=== PATIENT | female | born 1985 | race Caucasian/White ===

== ENCOUNTER → 2016-06-08 | Day surgery (SDC) | payer OTHER ==
[~2016-06-08] VITALS: Ht 160 cm; Wt 68.0 kg
[~2016-06-08] MED LIST: /ONDA4TA OR; /PANT40TA OR; /SUCR1TA OR; ACET50TA PO; ACET65TA OR; BUDE150T PO; BUSP10TA PO; CIPR500T4 OR; COLA100C2 OR; IBUP100SUS PO; IRON325T3 PO; KLON0.5T PO; LIDOCAINE 2% INJ 100 MG/5 ML SDV (FOR ANES.) As Ordered ONE; LR 1,000 ML IV SCH; METO10TA2 OR; MIDAZOLAM INJ 2 MG/2 ML VIAL (J2250) As Ordered ONE; MILKSUS OR; MIRALEX OR; OMEP40CA2 PO; ONDANSETRON 4MG/2ML VIAL (J2405) As Ordered ONE; ONDANSETRON 4MG/2ML VIAL (J2405) IV PRN; PERC5TAB8 OR; PERC7.5T8 OR; PRENTAB74 PO; PROPOFOL 200 MG/20 ML VIAL As Ordered ONE; SUCCINYLCHOLINE 100 MG/5 ML SYRINGE (J0330) As Ordered ONE; ZOLO100T PO; dexameTHASONE 4 MG/ML 1ML VIAL (J1100) As Ordered ONE; fentaNYL 100 MCG/2 ML INJECTION (J3010) As Ordered ONE
--- NOTE | 2016-06-08 07:33 | EDDOCDS ---
Nurse's Notes [facility] Name: Kathryn Reis Age: 30 yrs Sex: Female : 1985 Arrival Date: 06/08/2016 Time: 03:42 Bed 1 Private MD: Diagnosis: Esophageal obstruction Presentation: 06/08 03:48 Presenting complaint: EMS states: Patient has had long standing issues with swallowing, mgs was usually able to force food down. Tonight patient had piece of cube steak get stuck, pain 4/10. CAH tried using nitro and carbonated beverage to force food down. VS WNL. NKDA. History anxiety and depression. Patient given dose of Ativan at [facility]. Risk factors: Stridor is not present. Drooling is not present. Shortness of breath is not present. Cellulitis is not present. Adult Sepsis Screening: The patient does not have new or worsening altered mentation. Patient's respiratory rate is less than 22. Systolic blood pressure is greater than 100. Patient has a qSOFA score of 0- Negative Sepsis Screen. Suicide/Homicide risk assessment- the patient denies having any suicidal and/or homicidal ideations and does not present with any other emotional, behavioral or mental health complaints. Status: Patient is not a public address servicer or dependent. Transition of care: patient was received from [facility]. 03:48 Acuity: ALEAH Level 3 mgs 03:48 Method Of Arrival: Ambulance mgs Triage Assessment: 03:56 General: Appears in no apparent distress, Behavior is appropriate for age, cooperative. mgs Pain: Denies pain. Pt Declines HIV testing. The patient is triaged at the bedside. See Assessment in Nurses Notes section of ED record. Neurological: Level of Consciousness is awake, alert, Oriented to person, place, time. EENT: Throat is pink. Cardiovascular: Capillary refill < 3 seconds Heart tones S1 S2 present. Respiratory: Airway is patent Respiratory effort is even, unlabored, Respiratory pattern is regular, symmetrical. Derm: Skin is pink, warm & dry. 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 Zoloft 100 mg Oral tab 1 tab once daily (Last dose: 06/07/2016 21:00) 2. BuSpar 10 mg Oral tab 1 tab 2 times per day (Last dose: 06/06/2016 21:00) - PMHx: Anxiety; Depression; Pancreatitis; - PSHx: Cholecystectomy; left knee ortho; right knee ortho; Tonsillectomy; Adenoidectomy; Tubal ligation; - Social history: Smoking status: Patient states was never smoker of tobacco. No barriers to communication noted, The patient speaks fluent Bangladeshi. - Family history: Not pertinent. - : The pt / caregiver states he / she is not on anticoagulants. Home medication list is obtained from the patient. - Exposure Risk Screening:: None identified. Screenin:58 Screening information is obtained from the patient. Fall risk: No risks identified. mgs Assistance ADL's: requires no assistance with activities of daily living. Abuse/DV Screen: The patient / caregiver reports he/she is: not in a situation that causes fear, pain or injury. Nutritional screening: No deficits noted. Advance Directives: Currently, there is a health care proxy, Laz Hernandez, father. There is no active DNR order. home support is adequate. Assessment: 03:59 General: Please see triage assessment. mgs 04:59 General: Appears in no apparent distress, Behavior is cooperative. Neurological: Level mgs of Consciousness is awake, alert, Oriented to person, place, time. Cardiovascular: Capillary refill < 3 seconds. Respiratory: Airway is patent Respiratory effort is even, unlabored, Respiratory pattern is regular, symmetrical. Derm: Skin is pink, warm & dry. 05:55 General: Appears in no apparent distress, Behavior is cooperative. Neurological: Level mgs of Consciousness is awake, alert. Cardiovascular: Capillary refill < 3 seconds. Respiratory: Airway is patent Respiratory effort is even, unlabored, Respiratory pattern is regular, symmetrical. Derm: Skin is pink, warm & dry. 06:30 General: Appears in no apparent distress, Behavior is cooperative. Neurological: Level mgs of Consciousness is awake, alert, Oriented to person, place, time. Cardiovascular: Capillary refill < 3 seconds. Respiratory: Airway is patent Respiratory effort is even, unlabored, Respiratory pattern is regular, symmetrical. Derm: Skin is pink, warm & dry. 07:27 General: Pt able to accommodate her own secretions OR check list completed vital signs dls remain stable.. Vital Signs: 03:47 BP 122 / 80 RA Sitting (auto/reg); Pulse 95 MON; Resp 18 S; Temp 98.0(O); Pulse Ox 99% cln on R/A; Weight 68.04 kg (R); Height 5 ft. 3 in. (160.02 cm) (R); Pain 4/10; 04:58 BP 102 / 68 (auto/); mgs 04:58 Pulse Ox 96% ; mgs 07:28 BP 95 / 52; Pulse 67; Resp 18; Temp 98.0(TE); Pulse Ox 97% on R/A; dls 03:47 Body Mass Index 26.57 (68.04 kg, 160.02 cm) cln Vitals: 03:56 Log In Time N/A - ambulance arrival. s ED Course: 03:43 Patient visited by Kelly Parsons PCA. giovani 03:43 Patient moved to Waiting giovani 03:44 Patient moved to 1 giovani 03:48 Curtis Rivera RN is Primary Nurse. mgs 03:48 Pt greeted and oriented to ED. Patient advised of names of staff involved in care, cln location of call lucas, wait times and NPO status. Patient has correct armband on for positive identification. Placed in gown. Bed in low position. Call light in reach. Side rails up X 1. 03:49 Patient visited by Sanjuana Martin PCA. cln 03:49 Patient visited by Kelly Parsons PCA. giovani 03:52 Curtis Emerson DO is Attending Physician. mm11 03:52 Triage Initiated mgs 03:53 Patient visited by Curtis Emerson DO. mm11 03:56 Patient visited by Curtis Emerson DO. mm11 03:59 Patient visited by Curtis Rivera RN. mgs 03:59 Maintain field IV. Dressing intact. Good blood return noted. Site clean & dry. Gauge & mgs site: 20 in left AC. 04:12 Max Alanis MD is Hospitalizing Provider. mm11 04:25 Patient name changed from Kathryn\S\Kaylah\S\Tyre\S\ to Kathryn\S\Kaylah\S\Reis. EDMS 04:56 [facility] Payment Agreement was scanned into PhysicianPortal and attached [facility] record[facility] 04[facility] Patient visited by Curtis Rivera RN. mgs 05:55 Patient visited by Curtis Rivera RN. mgs 06:31 Patient visited by Curtis Rivera RN. mgs 07:01 Report received from Marbin BUSH. dls 07:30 The patient / caregiver is instructed regarding the plan of care and ED course. dls 07:30 No procedures done that require assistance. dls Order Results: There are currently no results for this order. Outcome: 04:13 Decision to Hospitalize by Provider. mm11 07:29 Discharge Assessment: Patient awake, alert and oriented x 3. No cognitive and/or dls functional deficits noted. Patient verbalized understanding of disposition instructions. patient administered narcotics - no. The following High Risk Discharge criteria are identified: None. Admitted to OR accompanied by nurse, via stretcher, with chart. Condition: stable. No special radiology studies were completed. Property :Personal belongings accompany Pt. 07:32 Patient left the ED. dls Signatures: Dispatcher [facility] Joann Love RN RN Curtis Souza, DO mm11 Kelly Parsons, MANAGER CONTRACT MANAGER CONTRACT Val[facility] Curtis Rivera,RN RN mgs Sanjuana Martin, MANAGER CONTRACT MANAGER CONTRACT cln [facility]
--- NOTE | 2016-06-08 07:33 | EDDOCDS ---
Physician Documentation [facility] Name: Kathryn Reis Age: 30 yrs Sex: Female : 1985 Arrival Date: 06/08/2016 Time: 03:42 Bed 1 Private MD: Disposition: 06/08/16 04:13 Hospitalization ordered by Max Alanis for Inpatient Admission. Preliminary diagnosis is Esophageal obstruction. - Bed requested for Admit. - Status is Inpatient Admission. dls - Condition is Stable. - Problem is an acute exacerbation. - Symptoms have improved. Historical: - Allergies: animal hair; feathers; - Home Meds: 1. Zoloft 100 mg Oral tab 1 tab once daily (Last dose: 06/07/2016 21:00) 2. BuSpar 10 mg Oral tab 1 tab 2 times per day (Last dose: 06/06/2016 21:00) - PMHx: Anxiety; Depression; Pancreatitis; - PSHx: Cholecystectomy; left knee ortho; right knee ortho; Tonsillectomy; Adenoidectomy; Tubal ligation; - Social history: Smoking status: Patient states was never smoker of tobacco. No barriers to communication noted, The patient speaks fluent Welsh. - Family history: Not pertinent. - : The pt / caregiver states he / she is not on anticoagulants. Home medication list is obtained from the patient. - Exposure Risk Screening:: None identified. 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 3 in. (160.02 cm) (R); Pain 4/10; 04:58 BP 102 / 68 (auto/); mgs 04:58 Pulse Ox 96% ; mgs 07:28 BP 95 / 52; Pulse 67; Resp 18; Temp 98.0(TE); Pulse Ox 97% on R/A; dls 03:47 Body Mass Index 26.57 (68.04 kg, 160.02 cm) cln MDM: 04:01 BED REQUEST+ADM ordered. EDNM 04:27 Financial registration complete. [facility] 04:56 [facility] Payment Agreement was scanned into [employer] and attached to record. [facility] Signatures: Dispatcher [employer] EDMS Joann Love RN RN dls Maynard, Matthew, DO mm11 Valerie Donovan [facility] Curtis Rivera,RACHELLE RN mgs The chart was reviewed and I authenticate all verbal orders and agree with the evaluation and treatment provided.Corrections: (The following items were deleted from the chart) 04:26 04:01 Chest, 2 view (PA\E\Lat)+XR ordered. EDMS EDMS Attachments: 04:56 [facility] Payment Agreement [facility] MTDD
--- NOTE | 2016-06-08 08:37 | ROOR ---
Patient Name: Kathryn Reis Procedure Date: 06/08/2016 7:46 AM Date of : 1985 Age: 30 Room: Main OR Gender: Female Note Status: Finalized Procedure: Upper GI endoscopy Indications: Foreign body in the esophagus Providers: Max Alanis MD Referring MD: WILMAN Gann Requesting Provider: Medicines: General Anesthesia Complications: No immediate complications. Procedure: Pre-Anesthesia Assessment: - Prior to the procedure, a History and Physical was performed, and patient medications and allergies were reviewed. The patient is competent. The risks and benefits of the procedure and the sedation options and risks were discussed with the patient. All questions were answered and informed consent was obtained. Patient identification and proposed procedure were verified by the physician, the nurse and the mechanical systems control engineer in the procedure room. Mental Status Examination: alert and oriented. Airway Examination: normal oropharyngeal airway and neck mobility. Respiratory Examination: clear to auscultation. CV Examination: normal. Prophylactic Antibiotics: The patient does not require prophylactic antibiotics. Prior Anticoagulants: The patient has taken no previous anticoagulant or antiplatelet agents. ASA Grade Assessment: I - A normal, healthy patient. After reviewing the risks and benefits, the patient was deemed in satisfactory condition to undergo the procedure. The anesthesia plan was to use general anesthesia. Immediately prior to administration of medications, the patient was re-assessed for adequacy to receive sedatives. The heart rate, respiratory rate, oxygen saturations, blood pressure, adequacy of pulmonary ventilation, and response to care were monitored throughout the procedure. The physical status of the patient was re-assessed after the procedure. The Endoscope was introduced through the mouth, and advanced to the second part of duodenum. The upper GI endoscopy was accomplished without difficulty. The patient tolerated the procedure well. Findings: Mildly severe esophagitis with no bleeding was found 42 cm from the incisors. Biopsies were taken with a cold forceps for histology. Estimated blood loss was minimal. The entire examined stomach was normal. The second portion of the duodenum was normal. A piece of meat was found over lower third of esophagus, partially obstructing esophagus with saliva and clear fluid backing up from it. This was pushed down to the stomach without difficulty. An inflamed area of the distal esophagus/gastroesophageal junction was found Impression: - Mildly severe reflux esophagitis. Biopsied. - Normal stomach. - Normal second portion of the duodenum. Recommendation: - Discharge patient to home (ambulatory). - Soft diet for 2 weeks. - Use Prilosec (omeprazole) 40 mg PO daily for 6 weeks. Attending Participation: I personally performed the entire procedure. Max Alanis MD Max Alanis MD 06/08/2016 8:36:50 AM This report has been signed electronically. Number of Addenda: 0 Note Initiated On: 06/08/2016 7:46 AM Estimated Blood Loss: Estimated blood loss was minimal.
[2016-06-08] MEDS: fentaNYL 100 MCG/2 ML INJECTION (J3010) IV PRN ×2 (08:55→09:00)
[2016-06-08 09:55] VITALS: BP 107/61
--- NOTE | 2016-06-10 08:33 | EDDOCDS ---
Physician Documentation [facility] Name: Kathryn Reis Age: 30 yrs Sex: Female : 1985 Arrival Date: 06/08/2016 Time: 03:42 Bed 1 Private MD: Disposition: 06/08/16 04:13 Hospitalization ordered by Max Alanis for Inpatient Admission. Preliminary diagnosis is Esophageal obstruction. - Bed requested for Admit. - Status is Inpatient Admission. dls - Condition is Stable. - Problem is an acute exacerbation. - Symptoms have improved. Historical: - Allergies: animal hair; feathers; - Home Meds: 1. Zoloft 100 mg Oral tab 1 tab once daily (Last dose: 06/07/2016 21:00) 2. BuSpar 10 mg Oral tab 1 tab 2 times per day (Last dose: 06/06/2016 21:00) - PMHx: Anxiety; Depression; Pancreatitis; - PSHx: Cholecystectomy; left knee ortho; right knee ortho; Tonsillectomy; Adenoidectomy; Tubal ligation; - Social history: Smoking status: Patient states was never smoker of tobacco. No barriers to communication noted, The patient speaks fluent Occitan. - Family history: Not pertinent. - : The pt / caregiver states he / she is not on anticoagulants. Home medication list is obtained from the patient. - Exposure Risk Screening:: None identified. 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 3 in. (160.02 cm) (R); Pain 4/10; 04:58 BP 102 / 68 (auto/); mgs 04:58 Pulse Ox 96% ; mgs 07:28 BP 95 / 52; Pulse 67; Resp 18; Temp 98.0(TE); Pulse Ox 97% on R/A; dls 03:47 Body Mass Index 26.57 (68.04 kg, 160.02 cm) cln MDM: 04:01 BED REQUEST+ADM ordered. EDDC 04:27 Financial registration complete. [facility] 04:56 [facility] Payment Agreement was scanned into MEDHOST and attached to record. [facility] 06/09 13:44 T-Sheet-- Draft Copy was scanned into MEDHOST and attached to record. 13:44 PCR was scanned into MEDHOST and attached to record. Signatures: Dispatcher [employer] EDMS Joann Love RN RN dls Elsi Hauser, Reg Reg Curtis Emerson, DO DO mm11 Valerie Donovan [facility] Curtis Rivera,RACHELLE RN mgs The chart was reviewed and I authenticate all verbal orders and agree with the evaluation and treatment provided.Corrections: (The following items were deleted from the chart) 06/08 04:26 04:01 Chest, 2 view (PA\E\Lat)+XR ordered. EDMS EDMS Attachments: 04:56 [facility] Payment Agreement [facility] 06/09 13:44 T-Sheet-- Draft Copy gb Chart Complete MTDD
--- NOTE | 2016-06-10 08:33 | EDDOCDS ---
Physician Documentation [facility] Name: Kathryn Reis Age: 30 yrs Sex: Female : 1985 Arrival Date: 06/08/2016 Time: 03:42 Bed 1 Private MD: Disposition: 06/08/16 04:13 Hospitalization ordered by Max Alanis for Inpatient Admission. Preliminary diagnosis is Esophageal obstruction. - Bed requested for Admit. - Status is Inpatient Admission. dls - Condition is Stable. - Problem is an acute exacerbation. - Symptoms have improved. Historical: - Allergies: animal hair; feathers; - Home Meds: 1. Zoloft 100 mg Oral tab 1 tab once daily (Last dose: 06/07/2016 21:00) 2. BuSpar 10 mg Oral tab 1 tab 2 times per day (Last dose: 06/06/2016 21:00) - PMHx: Anxiety; Depression; Pancreatitis; - PSHx: Cholecystectomy; left knee ortho; right knee ortho; Tonsillectomy; Adenoidectomy; Tubal ligation; - Social history: Smoking status: Patient states was never smoker of tobacco. No barriers to communication noted, The patient speaks fluent Armenian. - Family history: Not pertinent. - : The pt / caregiver states he / she is not on anticoagulants. Home medication list is obtained from the patient. - Exposure Risk Screening:: None identified. 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 3 in. (160.02 cm) (R); Pain 4/10; 04:58 BP 102 / 68 (auto/); mgs 04:58 Pulse Ox 96% ; mgs 07:28 BP 95 / 52; Pulse 67; Resp 18; Temp 98.0(TE); Pulse Ox 97% on R/A; dls 03:47 Body Mass Index 26.57 (68.04 kg, 160.02 cm) cln MDM: 04:01 BED REQUEST+ADM ordered. EDOK 04:27 Financial registration complete. [facility] 04:56 [facility] Payment Agreement was scanned into MEDHOST and attached to record. [facility] 06/09 13:44 T-Sheet-- Draft Copy was scanned into MEDHOST and attached to record. 13:44 PCR was scanned into MEDHOST and attached to record. Signatures: Dispatcher [employer] EDMS Joann Love RN RN dls Elsi Hauser, Reg Reg Curtis Emerson, DO DO mm11 Valerie Donovan [facility] Curtis Rivera,RACHELLE RN mgs The chart was reviewed and I authenticate all verbal orders and agree with the evaluation and treatment provided.Corrections: (The following items were deleted from the chart) 06/08 04:26 04:01 Chest, 2 view (PA\E\Lat)+XR ordered. EDMS EDMS Attachments: 04:56 [facility] Payment Agreement [facility] 06/09 13:44 T-Sheet-- Draft Copy gb Chart Complete MTDD
--- NOTE | 2016-06-10 08:33 | EDDOCDS ---
Nurse's Notes [facility] Name: Kathryn Reis Age: 30 yrs Sex: Female : 1985 Arrival Date: 06/08/2016 Time: 03:42 Bed 1 Private MD: Diagnosis: Esophageal obstruction Presentation: 06/08 03:48 Presenting complaint: EMS states: Patient has had long standing issues with swallowing, mgs was usually able to force food down. Tonight patient had piece of cube steak get stuck, pain 4/10. CAH tried using nitro and carbonated beverage to force food down. VS WNL. NKDA. History anxiety and depression. Patient given dose of Ativan at [facility]. Risk factors: Stridor is not present. Drooling is not present. Shortness of breath is not present. Cellulitis is not present. Adult Sepsis Screening: The patient does not have new or worsening altered mentation. Patient's respiratory rate is less than 22. Systolic blood pressure is greater than 100. Patient has a qSOFA score of 0- Negative Sepsis Screen. Suicide/Homicide risk assessment- the patient denies having any suicidal and/or homicidal ideations and does not present with any other emotional, behavioral or mental health complaints. Status: Patient is not a director of neighborhood service center or dependent. Transition of care: patient was received from [facility]. 03:48 Acuity: ALEAH Level 3 mgs 03:48 Method Of Arrival: Ambulance mgs Triage Assessment: 03:56 General: Appears in no apparent distress, Behavior is appropriate for age, cooperative. mgs Pain: Denies pain. Pt Declines HIV testing. The patient is triaged at the bedside. See Assessment in Nurses Notes section of ED record. Neurological: Level of Consciousness is awake, alert, Oriented to person, place, time. EENT: Throat is pink. Cardiovascular: Capillary refill < 3 seconds Heart tones S1 S2 present. Respiratory: Airway is patent Respiratory effort is even, unlabored, Respiratory pattern is regular, symmetrical. Derm: Skin is pink, warm & dry. BOND ANALYST: 03:56 4, Full Term 4, Living 4 mgs Historical: - Allergies: animal hair; feathers; - Home Meds: 1. Zoloft 100 mg Oral tab 1 tab once daily (Last dose: 06/07/2016 21:00) 2. BuSpar 10 mg Oral tab 1 tab 2 times per day (Last dose: 06/06/2016 21:00) - PMHx: Anxiety; Depression; Pancreatitis; - PSHx: Cholecystectomy; left knee ortho; right knee ortho; Tonsillectomy; Adenoidectomy; Tubal ligation; - Social history: Smoking status: Patient states was never smoker of tobacco. No barriers to communication noted, The patient speaks fluent Dutch. - Family history: Not pertinent. - : The pt / caregiver states he / she is not on anticoagulants. Home medication list is obtained from the patient. - Exposure Risk Screening:: None identified. Screenin:58 Screening information is obtained from the patient. Fall risk: No risks identified. mgs Assistance ADL's: requires no assistance with activities of daily living. Abuse/DV Screen: The patient / caregiver reports he/she is: not in a situation that causes fear, pain or injury. Nutritional screening: No deficits noted. Advance Directives: Currently, there is a health care proxy, Laz Hernandez, father. There is no active DNR order. home support is adequate. Assessment: 03:59 General: Please see triage assessment. mgs 04:59 General: Appears in no apparent distress, Behavior is cooperative. Neurological: Level mgs of Consciousness is awake, alert, Oriented to person, place, time. Cardiovascular: Capillary refill < 3 seconds. Respiratory: Airway is patent Respiratory effort is even, unlabored, Respiratory pattern is regular, symmetrical. Derm: Skin is pink, warm & dry. 05:55 General: Appears in no apparent distress, Behavior is cooperative. Neurological: Level mgs of Consciousness is awake, alert. Cardiovascular: Capillary refill < 3 seconds. Respiratory: Airway is patent Respiratory effort is even, unlabored, Respiratory pattern is regular, symmetrical. Derm: Skin is pink, warm & dry. 06:30 General: Appears in no apparent distress, Behavior is cooperative. Neurological: Level mgs of Consciousness is awake, alert, Oriented to person, place, time. Cardiovascular: Capillary refill < 3 seconds. Respiratory: Airway is patent Respiratory effort is even, unlabored, Respiratory pattern is regular, symmetrical. Derm: Skin is pink, warm & dry. 07:27 General: Pt able to accommodate her own secretions OR check list completed vital signs dls remain stable.. Vital Signs: 03:47 BP 122 / 80 RA Sitting (auto/reg); Pulse 95 MON; Resp 18 S; Temp 98.0(O); Pulse Ox 99% cln on R/A; Weight 68.04 kg (R); Height 5 ft. 3 in. (160.02 cm) (R); Pain 4/10; 04:58 BP 102 / 68 (auto/); mgs 04:58 Pulse Ox 96% ; mgs 07:28 BP 95 / 52; Pulse 67; Resp 18; Temp 98.0(TE); Pulse Ox 97% on R/A; dls 03:47 Body Mass Index 26.57 (68.04 kg, 160.02 cm) cln Vitals: 03:56 Log In Time N/A - ambulance arrival. s ED Course: 03:43 Patient visited by Kelly Parsons PCA. giovani 03:43 Patient moved to Waiting giovani 03:44 Patient moved to 1 giovani 03:48 Curtis Rivera RN is Primary Nurse. mgs 03:48 Pt greeted and oriented to ED. Patient advised of names of staff involved in care, cln location of call lucas, wait times and NPO status. Patient has correct armband on for positive identification. Placed in gown. Bed in low position. Call light in reach. Side rails up X 1. 03:49 Patient visited by Sanjuana Martin PCA. cln 03:49 Patient visited by Kelly Parsons PCA. giovani 03:52 Curtis Emerson DO is Attending Physician. mm11 03:52 Triage Initiated mgs 03:53 Patient visited by Curtis Emerson DO. mm11 03:56 Patient visited by Curtis Emerson DO. mm11 03:59 Patient visited by Curtis Rivera RN. mgs 03:59 Maintain field IV. Dressing intact. Good blood return noted. Site clean & dry. Gauge & mgs site: 20 in left AC. 04:12 Max Alanis MD is Hospitalizing Provider. mm11 04:25 Patient name changed from Kathryn\S\Kaylah\S\Tyre\S\ to Kathryn\S\Kaylah\S\Reis. EDMS 04:56 [facility] Payment Agreement was scanned into [employer] and attached to record. [facility] 04:59 Patient visited by Curtis Rivera RN. mgs 05:55 Patient visited by Curtis Rivera,RACHELLE. mgs 06:31 Patient visited by Curtis Rivera RN. mgs 07:01 Report received from Marbin BUSH. dls 07:30 The patient / caregiver is instructed regarding the plan of care and ED course. dls 07:30 No procedures done that require assistance. dls 06/09 13:44 T-Sheet-- Draft Copy was scanned into [employer] and attached to record. gb 13:44 PCR was scanned into [employer] and attached to record. gb Order Results: There are currently no results for this order. Outcome: 06/08 04:13 Decision to Hospitalize by Provider. mm11 07:29 Discharge Assessment: Patient awake, alert and oriented x 3. No cognitive and/or dls functional deficits noted. Patient verbalized understanding of disposition instructions. patient administered narcotics - no. The following High Risk Discharge criteria are identified: None. Admitted to OR accompanied by nurse, via stretcher, with chart. Condition: stable. No special radiology studies were completed. Property :Personal belongings accompany Pt. 07:32 Patient left the ED. dls Signatures: Dispatcher [facility] EDMS Joann Love, RN RN dls Elsi Hauser, Reg Reg Curtis Malcolm, DO mm11 Kelly Parsons, WELDING EQUIPMENT SALES REPRESENTATIVE WELDING EQUIPMENT SALES REPRESENTATIVE Valerie Arevalo Curtis Borges,RN RN mgs Sanjuana Martin, WELDING EQUIPMENT SALES REPRESENTATIVE WELDING EQUIPMENT SALES REPRESENTATIVE cln Chart Complete MTDD
== END ==
LOC: M ED 03:42 → M SDC 07:31
PROVIDERS: ATTEND Surgery
DX: T18.108A Unspecified foreign body in esophagus causing other injury, initial encounter (principal); Y92.099 Unspecified place in other non-institutional residence as the place of occurrence of the external cause; K21.0 Gastro-esophageal reflux disease with esophagitis; F32.9 Major depressive disorder, single episode, unspecified; F41.9 Anxiety disorder, unspecified; Z79.899 Other long term (current) drug therapy
CPT/HCPCS: 43239; 43247; 88305; 99285; J0330; J1100; J2250; J2405; J3010

== ENCOUNTER → 2016-07-14 | Outpatient (REF) | payer OTHER ==
[~2016-07-14] MED LIST changes: -LIDOCAINE 2% INJ 100 MG/5 ML SDV (FOR ANES.) As Ordered ONE; -LR 1,000 ML IV SCH; -MIDAZOLAM INJ 2 MG/2 ML VIAL (J2250) As Ordered ONE; -ONDANSETRON 4MG/2ML VIAL (J2405) As Ordered ONE; -ONDANSETRON 4MG/2ML VIAL (J2405) IV PRN; -PROPOFOL 200 MG/20 ML VIAL As Ordered ONE; -SUCCINYLCHOLINE 100 MG/5 ML SYRINGE (J0330) As Ordered ONE; -dexameTHASONE 4 MG/ML 1ML VIAL (J1100) As Ordered ONE; -fentaNYL 100 MCG/2 ML INJECTION (J3010) As Ordered ONE
== END ==
LOC: M LAB REF 11:32
PROVIDERS: ATTEND Physician Assistant
DX: B34.9 Viral infection, unspecified (principal)

== ENCOUNTER → 2016-10-28 | Outpatient (CLI) | payer OTHER ==
[~2016-10-28] VITALS: Ht 167.6 cm; Wt 68.0 kg
[~2016-10-28] MED LIST changes: +IRON65TA PO; +LIDOCAINE 2% INJ 100 MG/5 ML SDV (FOR ANES.) As Ordered ONE; +NS 1,000 ML IV ONE; +PROPOFOL 200 MG/20 ML VIAL As Ordered ONE
--- NOTE | 2016-10-28 14:00 | ROOR ---
Patient Name: Kathryn Reis Procedure Date: 10/28/2016 1:41 PM Date of : 1985 Age: 30 Room: [facility] Gender: Female Note Status: Finalized Procedure: Upper GI endoscopy + Balloon Dilatation Indications: Dysphagia, Follow-up of eosinophilic esophagitis, For therapy of eosinophilic esophagitis Providers: Jeremy Jimenez MD Referring MD: WILMAN Gann Requesting Provider: Medicines: Monitored Anesthesia Care Complications: No immediate complications. Procedure: Pre-Anesthesia Assessment: - The heart rate, respiratory rate, oxygen saturations, blood pressure, adequacy of pulmonary ventilation, and response to care were monitored throughout the procedure. The Endoscope was introduced through the mouth, and advanced to the second part of duodenum. The upper GI endoscopy was accomplished without difficulty. The patient tolerated the procedure well. Findings: The Z-line was regular and was found 40 cm from the incisors. Mucosal changes including ringed esophagus were found in the lower third of the esophagus. A TTS dilator was passed through the scope. Dilation with a 15-16.5-18 mm balloon dilator was performed to 15 mm in the entire esophagus. Impression: - Z-line regular, 40 cm from the incisors. - Esophageal mucosal changes suggestive of eosinophilic esophagitis. - Dilation performed in the entire esophagus. - No specimens collected. - The examination was otherwise normal. Recommendation: - Patient has a contact number available for emergencies. The signs and symptoms of potential delayed complications were discussed with the patient. Return to normal activities tomorrow. Written discharge instructions were provided to the patient. - Discharge patient to home. - Follow an antireflux regimen. - Use Prilosec (omeprazole) 40 mg PO BID. - Return to GI clinic in 3 months. - The findings and recommendations were discussed with the patient's family. Jeremy Jimenez MD Jeremy Jimenez MD 10/28/2016 1:59:46 PM This report has been signed electronically. Number of Addenda: 0 Note Initiated On: 10/28/2016 1:41 PM Estimated Blood Loss: Estimated blood loss: none.
[2016-10-28 14:24] VITALS: BP 139/83
== END ==
LOC: M OPP 12:32
PROVIDERS: ATTEND Internal Medicine Gastroenterology
DX: R13.10 Dysphagia, unspecified (principal); K20.0 Eosinophilic esophagitis; F41.9 Anxiety disorder, unspecified; F32.9 Major depressive disorder, single episode, unspecified; J30.89 Other allergic rhinitis; Z79.899 Other long term (current) drug therapy

== ENCOUNTER 2017-12-28 23:24 | Emergency (ER) | payer OTHER ==
[2017-12-29] MEDS: NS 1,000 ML IV (01:45)
[2017-12-29] MEDS: GLUCAGON FOR INJ 1 MG VIAL (J1610) IV ×2 (02:52→03:20)
[2017-12-29] MEDS: NITROGLYCERIN 0.4 MG SUBL TABLET SL ×2 (02:52→03:22)
[2017-12-29] MEDS: LORazepam 2 MG/ML VIAL (J2060) IV (04:07)
== END 2017-12-29 05:35 | disposition short-term general hospital (02) ==
LOC: M ED 23:24
DX: T18.198A Other foreign object in esophagus causing other injury, initial encounter (principal); X58.XXXA Exposure to other specified factors, initial encounter; Y92.89 Other specified places as the place of occurrence of the external cause; F31.9 Bipolar disorder, unspecified; K21.9 Gastro-esophageal reflux disease without esophagitis; J30.89 Other allergic rhinitis; Z79.899 Other long term (current) drug therapy
CPT/HCPCS: 96374

== ENCOUNTER 2018-02-07 11:44 | Day surgery (SDC) | payer OTHER ==
[2018-02-07] MEDS: NS 1,000 ML IV (06:00)
[2018-02-07] MEDS ORDERED: LIDOCAINE 2% INJ 100 MG/5 ML SDV (FOR ANES.) As Ordered (12:14)
[2018-02-07] MEDS ORDERED: PROPOFOL 200 MG/20 ML VIAL As Ordered (12:14)
[2018-02-07] MEDS ORDERED: ONDANSETRON 4MG/2ML VIAL (J2405) As Ordered (12:14)
[2018-02-07] MEDS ORDERED: fentaNYL 100 MCG/2 ML INJECTION (J3010) As Ordered (12:17)
== END 2018-02-07 13:37 | disposition home or self-care (01) ==
LOC: M OPP 11:44
DX: K20.0 Eosinophilic esophagitis (principal); K22.2 Esophageal obstruction; K22.8 Other specified diseases of esophagus; R13.10 Dysphagia, unspecified; K21.9 Gastro-esophageal reflux disease without esophagitis; R63.0 Anorexia; R12 Heartburn; F32.9 Major depressive disorder, single episode, unspecified; F41.9 Anxiety disorder, unspecified; Z79.899 Other long term (current) drug therapy; Z80.3 Family history of malignant neoplasm of breast; Z80.0 Family history of malignant neoplasm of digestive organs
CPT/HCPCS: 43249

== ENCOUNTER 2018-08-08 06:50 | Day surgery (SDC) | payer OTHER ==
[~2018-08-08] VITALS: Ht 162.6 cm; Wt 74.8 kg
[~2018-08-08 06:50] MED LIST changes: -/ONDA4TA OR; -/PANT40TA OR; -/SUCR1TA OR; -ACET50TA PO; +BUDE0.5S6; +IBUP100S44 PO; -IBUP100SUS PO; -LIDOCAINE 2% INJ 100 MG/5 ML SDV (FOR ANES.) As Ordered ONE; +MAPA500T17 PO; -NS 1,000 ML IV ONE; +ONDA-1 OR; +PRIL20TA2 PO; -PROPOFOL 200 MG/20 ML VIAL As Ordered ONE; +PROT1TAB2 OR; +SUCR1TAB56 OR
[2018-08-08] MEDS ORDERED: NS 1,000 ML IV ONE (07:00)
[2018-08-08] MEDS ORDERED: PROPOFOL 200 MG/20 ML VIAL As Ordered ONE (07:07)
[2018-08-08] MEDS ORDERED: LIDOCAINE 2% INJ 100 MG/5 ML SDV (FOR ANES.) As Ordered ONE (07:07)
--- NOTE | 2018-08-08 08:41 | ROOR ---
Patient Name: Kathryn Reis Procedure Date: 08/08/2018 8:23 AM Date of : 1985 Age: 32 Room: [facility] Gender: Female Note Status: Finalized Procedure: Upper GI endoscopy + Balloon Dilatation Indications: Dysphagia Providers: Jeremy Jimenez MD Referring MD: 1. No Referring Physician 1. No Referring Physician, Admin. Requesting Provider: Medicines: Monitored Anesthesia Care Complications: No immediate complications. Procedure: Pre-Anesthesia Assessment: - The heart rate, respiratory rate, oxygen saturations, blood pressure, adequacy of pulmonary ventilation, and response to care were monitored throughout the procedure. The Endoscope was introduced through the mouth, and advanced to the second part of duodenum. The upper GI endoscopy was accomplished without difficulty. The patient tolerated the procedure well. Findings: The Z-line was regular and was found 40 cm from the incisors. Mucosal changes including ringed esophagus were found in the entire esophagus. Esophageal findings were graded using the Eosinophilic Esophagitis Endoscopic Reference Score (EoE-EREFS) as: Stricture present. A TTS dilator was passed through the scope. Dilation with an 18-19-20 mm balloon dilator was performed to 20 mm in the mid esophagus. The exam of the stomach was otherwise normal. The exam of the duodenum was otherwise normal. Impression: - Z-line regular, 40 cm from the incisors. - Esophageal mucosal changes consistent with eosinophilic esophagitis. - Dilation performed in the mid esophagus. - No specimens collected. - The examination was otherwise normal. Recommendation: - Patient has a contact number available for emergencies. The signs and symptoms of potential delayed complications were discussed with the patient. Return to normal activities tomorrow. Written discharge instructions were provided to the patient. - High fiber diet. - Discharge patient to home. - Continue present medications. - Return to GI clinic in 1 month. - The findings and recommendations were discussed with the patient's family. Jeremy Jimenez MD Jeremy Jimenez MD 08/08/2018 8:40:41 AM Electronically signed by Jeremy Jimenez MD Number of Addenda: 0 Note Initiated On: 08/08/2018 8:23 AM Estimated Blood Loss: Estimated blood loss: none.
[2018-08-08 09:00] VITALS: BP 116/79
== END 2018-08-08 09:09 | disposition home or self-care (01) ==
LOC: M OPP 06:50
PROVIDERS: ATTEND Internal Medicine Gastroenterology
DX: K21.0 Gastro-esophageal reflux disease with esophagitis (principal); R13.10 Dysphagia, unspecified

== ENCOUNTER → 2018-12-08 | Outpatient (REF) ==
[~2018-12-08] MED LIST changes: -OMEP40CA2 PO; +OMEP40CA97 PO
[2018-12-08 13:33] LABS: BASO # 0.1 10^3/uL (0.0-0.2); BASO % 0.7 % (0.0-1.0); EOS # 0.6 10^3/uL (0.0-0.50); EOS % 8.4 % (0.0-3.0); HEMATOCRIT 40.3 % (36.0-47.0); HEMOGLOBIN 12.8 g/dl (12.0-15.5); LYMPH # 2.4 10^3/uL (1.5-4.5); LYMPH % 34.9 % (24.0-44.0); MEAN CORPUSCULAR HEMOGLOBIN 28.8 pg (27.0-33.0); MEAN CORPUSCULAR HGB CONC 31.8 g/dl (32.0-36.5); MEAN CORPUSCULAR VOLUME 90.6 fl (80.0-96.0); MONO # 0.5 10^3/uL (0.0-0.8); NEUTROPHILS # 3.3 10^3/uL (1.8-7.7); NEUTROPHILS % 48.7 % (36.0-66.0); PLATELET COUNT, AUTOMATED 287 10^3/uL (150-450); RED BLOOD COUNT 4.45 10^6/uL (4.00-5.40); WHITE BLOOD COUNT 6.8 10^3/uL (4.0-10.0)
== END ==
LOC: M LABSMT 12:55
PROVIDERS: ATTEND Allergy & Immunology Allergy
DX: J45.30 Mild persistent asthma, uncomplicated (principal)

== ENCOUNTER 2020-04-30 15:58 | Emergency (ER) | payer OTHER ==
[~2020-04-30] VITALS: Ht 162.6 cm; Wt 70.4 kg
[2020-04-30] MEDS ORDERED: GLUCAGON INJ 1MG VIAL IV STA ×2 (20:42→22:34)
[2020-04-30] MEDS ORDERED: LORazepam 2 MG/ML VIAL IV STA ×2 (20:42→22:34)
[2020-04-30] MEDS ORDERED: LORazepam 2 MG/ML VIAL As Ordered ONE (23:19)
[2020-05-01 01:01] VITALS: BP 107/71
[2020-05-01 01:46] LABS: RSV AMPLIFICATION NEGATIVE (NEGATIVE)
[2020-05-02] MEDS ORDERED: ZOLO25TA PO (14:18)
[2020-05-02] MEDS ORDERED: ZYRTTAB8 PO (14:18)
[2020-05-02] MEDS ORDERED: DYMI137S (14:18)
[2020-05-02] MEDS ORDERED: TOPA50TA8 PO (14:18)
[2020-05-02] MEDS ORDERED: SUMA50TA2 PO (14:18)
[2020-05-02] MEDS ORDERED: BUSP1TAB PO (14:18)
[2020-05-02] MEDS ORDERED: VENTAER INH (14:18)
[2020-05-02] MEDS ORDERED: AIRD1INH2 IN (14:18)
[2020-05-02] MEDS ORDERED: KETO0.02 OU (14:18)
== END 2020-05-01 02:20 | disposition left against medical advice (07) ==
LOC: M ED 15:58
DX: T18.128A Food in esophagus causing other injury, initial encounter (principal); Y92.89 Other specified places as the place of occurrence of the external cause; K20.0 Eosinophilic esophagitis; J30.89 Other allergic rhinitis; F41.9 Anxiety disorder, unspecified; F32.9 Major depressive disorder, single episode, unspecified; Z79.899 Other long term (current) drug therapy
CPT/HCPCS: 87631; 96374; 96375; 96376; 99283; J1610; J2060

== ENCOUNTER 2020-05-03 08:04 | Day surgery (SDC) | payer OTHER ==
[~2020-05-03] VITALS: Ht 162.6 cm; Wt 68.9 kg
[~2020-05-03 08:04] MED LIST changes: +AIRD1INH2 IN; +BUSP1TAB PO; +DYMI137S; +KETO0.02 OU; +LIDOCAINE 2% 100MG/5ML SDV (FOR ANES.) As Ordered ONE; +NS 1,000 ML IV ONE; +SUMA50TA2 PO; +TOPA50TA8 PO; +VENTAER INH; +ZOLO25TA PO; +ZYRTTAB8 PO; +propofoL 200 MG/20 ML VIAL As Ordered ONE
[2020-05-03] MEDS ORDERED: fentaNYL 100 MCG/2 ML INJECTION (J3010) As Ordered ONE (09:37)
--- NOTE | 2020-05-03 09:49 | ROOR ---
Patient Name: aKthryn Reis Procedure Date: 05/03/2020 9:30 AM Date of : 1985 Age: 34 Room: [facility] Gender: Female Note Status: Finalized Procedure: Upper GI endoscopy + Balloon Dilatation Indications: Dysphagia, Follow-up of eosinophilic esophagitis, For therapy of eosinophilic esophagitis Providers: Jeremy Jimenez MD Referring MD: Socorro Alvarez Requesting Provider: Medicines: Monitored Anesthesia Care Complications: No immediate complications. Procedure: Pre-Anesthesia Assessment: - The heart rate, respiratory rate, oxygen saturations, blood pressure, adequacy of pulmonary ventilation, and response to care were monitored throughout the procedure. The Endoscope was introduced through the mouth, and advanced to the second part of duodenum. The upper GI endoscopy was accomplished without difficulty. The patient tolerated the procedure well. Findings: The Z-line was regular and was found 40 cm from the incisors. Mucosal changes including ringed esophagus were found in the entire esophagus. A TTS dilator was passed through the scope. Dilation with a 15-16.5-18 mm balloon dilator was performed to 15 mm in the lower third of the esophagus. No other significant abnormalities were identified in a careful examination of the stomach. The exam of the duodenum was otherwise normal. Impression: - Z-line regular, 40 cm from the incisors. - Esophageal mucosal changes secondary to eosinophilic esophagitis. - Dilation performed in the lower third of the esophagus. - No specimens collected. - The examination was otherwise normal. Recommendation: - Patient has a contact number available for emergencies. The signs and symptoms of potential delayed complications were discussed with the patient. Return to normal activities tomorrow. Written discharge instructions were provided to the patient. - Resume previous diet. - Discharge patient to home. - Follow an antireflux regimen. - Use Prilosec (omeprazole) 40 mg PO BID. - Return to referring physician. - Return to GI office in 2 months. - The findings and recommendations were discussed with the patient. Procedure Code(s): --- Professional --- 49023, Esophagogastroduodenoscopy, flexible, transoral; with transendoscopic balloon dilation of esophagus (less than 30 mm diameter) Diagnosis Code(s): --- Professional --- K20.0, Eosinophilic esophagitis R13.10, Dysphagia, unspecified CPT copyright 2019 [employer]. All rights reserved. The codes documented in this report are preliminary and upon sales assoc review may be revised to meet current compliance requirements. Jeremy Jimenez MD Jeremy Jimenez MD 05/03/2020 9:48:49 AM Electronically signed by Jeremy Jimenez MD Number of Addenda: 0 Note Initiated On: 05/03/2020 9:30 AM Estimated Blood Loss: Estimated blood loss: none.
[2020-05-03 10:10] VITALS: BP 142/84
== END 2020-05-03 10:16 | disposition home or self-care (01) ==
LOC: M OPP 08:04
PROVIDERS: ATTEND Internal Medicine Gastroenterology
DX: R13.10 Dysphagia, unspecified (principal); K20.0 Eosinophilic esophagitis; R12 Heartburn; F41.9 Anxiety disorder, unspecified; F31.9 Bipolar disorder, unspecified; G43.909 Migraine, unspecified, not intractable, without status migrainosus; J45.909 Unspecified asthma, uncomplicated; Z91.09 Other allergy status, other than to drugs and biological substances; Z79.899 Other long term (current) drug therapy
CPT/HCPCS: 43249; J3010

== ENCOUNTER → 2021-01-22 | Outpatient (CLI) | payer OTHER ==
[~2021-01-22] MED LIST changes: -LIDOCAINE 2% 100MG/5ML SDV (FOR ANES.) As Ordered ONE; -NS 1,000 ML IV ONE; +OMEP40CA4 PO; -OMEP40CA97 PO; -propofoL 200 MG/20 ML VIAL As Ordered ONE
== END ==
LOC: M LABSMTC 09:28
PROVIDERS: ATTEND Anesthesiology
DX: Z01.818 Encounter for other preprocedural examination (principal); Z11.52 Encounter for screening for COVID-19

== ENCOUNTER 2021-01-27 07:09 | Day surgery (SDC) | payer OTHER ==
[~2021-01-27] VITALS: Ht 162.6 cm; Wt 63.5 kg
[~2021-01-27 07:09] MED LIST changes: +NS 1,000 ML IV ONE
[2021-01-27] MEDS ORDERED: fentaNYL 100 MCG/2 ML INJECTION (J3010) As Ordered ONE (07:27)
[2021-01-27] MEDS ORDERED: LIDOCAINE 2% MDV 20ML VIAL As Ordered ONE (07:27)
[2021-01-27] MEDS ORDERED: propofoL 200 MG/20 ML VIAL As Ordered ONE (07:27)
[2021-01-27] MEDS ORDERED: ONDANSETRON 4MG/2ML VIAL As Ordered ONE (08:24)
--- NOTE | 2021-01-27 08:45 | ROOR ---
Patient Name: Kathryn Reis Procedure Date: 01/27/2021 8:19 AM Date of : 1985 Age: 35 Room: [facility] Gender: Female Note Status: Finalized Procedure: Upper GI endoscopy + Balloon Dilatation Indications: Dysphagia, Chest pain (non cardiac) Providers: Jeremy Jimenez MD Referring MD: WILMAN Orlando Requesting Provider: Medicines: Monitored Anesthesia Care Complications: No immediate complications. Procedure: Pre-Anesthesia Assessment: - The heart rate, respiratory rate, oxygen saturations, blood pressure, adequacy of pulmonary ventilation, and response to care were monitored throughout the procedure. The Endoscope was introduced through the mouth, and advanced to the second part of duodenum. Findings: The Z-line was regular and was found 40 cm from the incisors. Mucosal changes including ringed esophagus were found in the lower third of the esophagus. A TTS dilator was passed through the scope. Dilation with a 15-16.5-18 mm balloon dilator was performed to 15 mm. The dilation site was examined and showed moderate mucosal disruption. No other significant abnormalities were identified in a careful examination of the stomach. The exam of the duodenum was otherwise normal. Impression: - Z-line regular, 40 cm from the incisors. - Esophageal mucosal changes secondary to eosinophilic esophagitis. Dilated. - No specimens collected. - The examination was otherwise normal. Recommendation: - Patient has a contact number available for emergencies. The signs and symptoms of potential delayed complications were discussed with the patient. Return to normal activities tomorrow. Written discharge instructions were provided to the patient. - Resume previous diet. - Discharge patient to home. - Continue present medications. - Balloon dilate in 6 months. - Return to referring physician. - The findings and recommendations were discussed with the patient. Procedure Code(s): --- Professional --- 19774, Esophagogastroduodenoscopy, flexible, transoral; with transendoscopic balloon dilation of esophagus (less than 30 mm diameter) Diagnosis Code(s): --- Professional --- K20.0, Eosinophilic esophagitis R13.10, Dysphagia, unspecified R07.89, Other chest pain CPT copyright 2019 [employer]. All rights reserved. The codes documented in this report are preliminary and upon residential recycle driver review may be revised to meet current compliance requirements. Jeremy Jimenez MD Jeremy Jimenez MD 01/27/2021 8:44:39 AM Electronically signed by Jeremy Jimenez MD Number of Addenda: 0 Note Initiated On: 01/27/2021 8:19 AM Estimated Blood Loss: Estimated blood loss: none.
[2021-01-27 09:00] VITALS: BP 117/78
== END 2021-01-27 09:09 | disposition home or self-care (01) ==
LOC: M OPP 07:09
PROVIDERS: ATTEND Internal Medicine Gastroenterology
DX: K20.0 Eosinophilic esophagitis (principal); R13.10 Dysphagia, unspecified; R07.89 Other chest pain; Z79.899 Other long term (current) drug therapy
CPT/HCPCS: 43249; J2405; J3010

== ENCOUNTER → 2021-07-10 | Outpatient (REF) | payer OTHER ==
[~2021-07-10] MED LIST changes: -NS 1,000 ML IV ONE
== END ==
LOC: M SFHCDERM 17:16
PROVIDERS: ATTEND Nurse Practitioner Family
DX: L82.1 Other seborrheic keratosis (principal)

== ENCOUNTER → 2022-03-04 | Outpatient (CLI) | payer OTHER ==
[~2022-03-04] MED LIST changes: +COLA100C5 PO; +DUPI300I SC
== END ==
LOC: M LABSMTC 09:36
PROVIDERS: ATTEND Anesthesiology
DX: Z01.818 Encounter for other preprocedural examination (principal); Z11.52 Encounter for screening for COVID-19

== ENCOUNTER 2022-03-09 11:19 | Day surgery (SDC) | payer OTHER ==
[~2022-03-09] VITALS: Ht 162.6 cm; Wt 70.3 kg
[~2022-03-09 11:19] MED LIST changes: +NS 1,000 ML IV ONE
[2022-03-09] MEDS ORDERED: propofoL 200 MG/20 ML VIAL As Ordered ONE ×2 (12:01→12:11)
[2022-03-09] MEDS ORDERED: LIDOCAINE 2% 100MG/5ML SDV (FOR ANES.) As Ordered ONE (12:01)
[2022-03-09] MEDS ORDERED: fentaNYL 100 MCG/2 ML INJECTION As Ordered ONE (12:01)
[2022-03-09 12:34] VITALS: BP 112/74
== END 2022-03-09 12:45 | disposition home or self-care (01) ==
LOC: M OPP 11:19
PROVIDERS: ATTEND Internal Medicine Gastroenterology
DX: K20.0 Eosinophilic esophagitis (principal); Z79.51 Long term (current) use of inhaled steroids; Z79.899 Other long term (current) drug therapy; G43.909 Migraine, unspecified, not intractable, without status migrainosus; F41.9 Anxiety disorder, unspecified; F31.9 Bipolar disorder, unspecified; J45.909 Unspecified asthma, uncomplicated
CPT/HCPCS: 43249; J3010

== ENCOUNTER 2024-02-23 11:40 | Day surgery (SDC) | payer OTHER ==
[~2024-02-23] VITALS: Ht 162.6 cm; Wt 70.9 kg
[~2024-02-23 11:40] MED LIST changes: +FAMO40TA3 PO; +HYDR-3363 PO; -KETO0.02 OU; +KETO5DRO33 OU; +LEVOTAB10 PO; -NS 1,000 ML IV ONE; +NS 250 ML IV ONE; +OMEP40CA5 PO
[2024-02-23] MEDS ORDERED: dexmedeTOMIDine (4MCG/ML)200MCG/50ML BTL (PRECEDEX) As Ordered ONE (14:12)
[2024-02-23] MEDS ORDERED: LIDOCAINE 2% 100MG/5ML SDV (FOR ANES.) As Ordered ONE (14:12)
[2024-02-23] MEDS ORDERED: propofoL 200 MG/20 ML VIAL As Ordered ONE (14:12)
[2024-02-23 14:51] VITALS: TEMP 98
[2024-02-23 15:06] VITALS: BP 125/74; O2SAT 99
== END 2024-02-23 15:13 | disposition home or self-care (01) ==
LOC: M OPP 11:40
PROVIDERS: ATTEND Internal Medicine Gastroenterology
DX: K20.0 Eosinophilic esophagitis (principal); K44.9 Diaphragmatic hernia without obstruction or gangrene; R13.10 Dysphagia, unspecified; J45.909 Unspecified asthma, uncomplicated; Z79.899 Other long term (current) drug therapy; R12 Heartburn; J30.89 Other allergic rhinitis; Z90.710 Acquired absence of both cervix and uterus; Z90.89 Acquired absence of other organs; G43.909 Migraine, unspecified, not intractable, without status migrainosus